=== PATIENT | female | born 1970 | race Two or more races ===

== ENCOUNTER 2021-06-22 11:26 | Inpatient (IN) | payer MEDICAID, OTHER ==
[~2021-06-22] VITALS: Ht 157.5 cm; Wt 101.3 kg
[2021-06-22] MEDS ORDERED: methylPREDNISolone SOD SUCC 125 MG/2 ML VL IV ONE (11:45)
[2021-06-22] MEDS ORDERED: ONDANSETRON HCL 4 MG/2 ML VIAL IV ONE (11:45)
[2021-06-22] MEDS ORDERED: SODIUM CHLORIDE 0.9% 1,000 ML IV ONE ×2 (11:45→17:00)
[2021-06-22 12:51] LABS: Albumin 2.9 g/dL (3.4-5.0); Calcium 8.1 mg/dL (8.5-10.1); Potassium 3.5 mmol/L (3.5-5.1)
[2021-06-22 13:00] LABS: BUN/Creatinine Ratio 10.2; Bilirubin, Total 0.4 mg/dL (0.2-1.0); CRP High Sensitivity 3.14 mg/dL (< 0.3); Total Protein 7.6 g/dL (6.4-8.2)
[2021-06-22 14:06] LABS: Basophils # (auto) 0 10 ^3/uL (0-0.2); Basophils % (auto) 0.7 % (0.0-2.0); Eosinophils # (auto) 0 10 ^3/uL (0-0.8); Hematocrit 38.3 % (36.0-46.0); Hemoglobin 13.2 g/dL (12.2-16.2); Lymphocytes # (auto) 0.4 10 ^3/uL (0.4-5.4); Lymphocytes % (auto) 12.1 % (10.0-50.0); Mean Corpuscular Hemoglobin 31.6 pg (28.0-32.0); Mean Corpuscular Hgb Conc. 34.4 g/dL (32.0-36.0); Mean Corpuscular Volume 91.8 fL (80.0-100.0); Monocytes # (auto) 0.2 10 ^3/uL (0-1.3); Monocytes % (auto) 5.4 % (0.0-12.0); Neutrophils % (auto) 81.8 % (37.0-80.0); Nucleated Red Blood Cells % 0.1 %; Red Blood Cells 4.18 10^6/uL (4.0-5.20); Red Cell Distribution Width 13.1 % (11.8-14.3); White Blood Cell 3.6 10^3/uL (4.4-10.8)
[2021-06-22] MEDS ORDERED: MORPHINE SULFATE INJECTION 2 MG/ML SYRG IV PRN ×2 (17:00)
[2021-06-22] MEDS ORDERED: NITROGLYCERIN 0.4 MG SL TAB SL PRN (17:00)
[2021-06-22] MEDS ORDERED: PROMETHAZINE W/CODEINE 5 ML ORAL SYRUP PO PRN (17:00)
[2021-06-22] MEDS ORDERED: OXYCODONE W/ ACETAMINOPHEN 5/325MG TABLET PO PRN (17:00)
[2021-06-22] MEDS: SODIUM CHLORIDE 0.9% 1,000 ML IV SCH (17:28)
[2021-06-22] MEDS: DOXYCYCLINE 100MG/250ML 250 ML IV SCH (17:28)
[2021-06-22] MEDS ORDERED: TRAZ50TA2 PO (20:22)
[2021-06-22] MEDS ORDERED: DIPH50CA31 PO (20:22)
[2021-06-22] MEDS ORDERED: ALPR0.254 PO (20:22)
[2021-06-22] MEDS ORDERED: METO25TA93 PO (20:22)
[2021-06-22] MEDS ORDERED: NORT25CA PO (20:22)
[2021-06-22] MEDS ORDERED: LISI-716 PO (20:22)
[2021-06-22] MEDS ORDERED: HYDR25TA5 PO (20:22)
[2021-06-22 20:30] VITALS: BP 128/78
[2021-06-22 22:00] VITALS: BP 123/75
[2021-06-22] MEDS ORDERED: diphenhdrAMINE HCL 25 MG CAP PO ONE (23:45)
[2021-06-23] MEDS: FLORASTOR (S. BOULARDII) 250 MG CAP PO SCH ×3 (00:03→21:12)
[2021-06-23] MEDS: ENOXAPARIN SOD 100 MG/1 ML SYRINGE SC SCH ×3 (00:03→21:13)
[2021-06-23] MEDS: SODIUM CHLORIDE 0.9% 1,000 ML IV SCH (00:46)
[2021-06-23 05:00] VITALS: BP 104/72
[2021-06-23] MEDS: DOXYCYCLINE 100MG/250ML 250 ML IV SCH ×2 (06:19→17:24)
[2021-06-23 06:58] LABS: Calcium 7.2 mg/dL (8.5-10.1); Potassium 3.6 mmol/L (3.5-5.1)
[2021-06-23 07:12] LABS: BUN/Creatinine Ratio 13.2; CRP High Sensitivity 2.02 mg/dL (< 0.3)
[2021-06-23 07:13] LABS: Basophils # (auto) 0 10 ^3/uL (0-0.2); Basophils % (auto) 0.2 % (0.0-2.0); Eosinophils # (auto) 0 10 ^3/uL (0-0.8); Hematocrit 37.6 % (36.0-46.0); Hemoglobin 13.2 g/dL (12.2-16.2); Lymphocytes # (auto) 0.7 10 ^3/uL (0.4-5.4); Lymphocytes % (auto) 16.5 % (10.0-50.0); Mean Corpuscular Hemoglobin 32.5 pg (28.0-32.0); Mean Corpuscular Hgb Conc. 35.1 g/dL (32.0-36.0); Mean Corpuscular Volume 92.6 fL (80.0-100.0); Monocytes # (auto) 0.2 10 ^3/uL (0-1.3); Monocytes % (auto) 4.1 % (0.0-12.0); Neutrophils # (auto) 3.3 10 ^3/uL (1.6-8.6); Neutrophils % (auto) 79.2 % (37.0-80.0); Nucleated Red Blood Cells % 0.1 %; Red Blood Cells 4.05 10^6/uL (4.0-5.20); Red Cell Distribution Width 12.8 % (11.8-14.3); White Blood Cell 4.2 10^3/uL (4.4-10.8)
[2021-06-23 09:00] VITALS: BP 119/75
[2021-06-23] MEDS: FAMOTIDINE (10MG/ML) 2ML VL IV SCH (09:26)
[2021-06-23] MEDS ORDERED: DexAMETHasone SOD PHOS 10MG/1ML VIAL INJ IV ONE (12:30)
[2021-06-23 13:00] VITALS: BP 144/97
[2021-06-23] MEDS ORDERED: REMDESIVIR PER PHARMACY 0 ML IV SCH (13:15)
[2021-06-23] MEDS ORDERED: ALBUTEROL SULF HFA 90MCG INH 200DOSE IN SCH (14:00)
[2021-06-23 14:54] LABS: Urine Bacteria NONE SEEN /hpf (None Seen); Urine Blood Negative /uL (Negative); Urine Specific Gravity 1.015 (1.001-1.035); Urine WBC 1 /hpf (0 - 5)
[2021-06-23 15:31] LABS: Amphetamine Screen, Urine NEGATIVE (NEGATIVE); Barbiturate Scree,Urine NEGATIVE (NEGATIVE); Benzodiazephine Screen, Urine POSITIVE (NEGATIVE); Cannabinoid Screen, Urine POSITIVE (NEGATIVE); Cocaine Screen, Urine NEGATIVE (NEGATIVE); Opiate Scree,Urine NEGATIVE (NEGATIVE); Phencyclidine Screen, Urine NEGATIVE (NEGATIVE)
[2021-06-23] MEDS: PROMETHAZINE HCL 25 MG/ML 1ML IV PRN (15:53)
[2021-06-23] MEDS: ACETAMINOPHEN 325 MG TAB PO PRN (15:53)
[2021-06-23] MEDS ORDERED: REMDESIVIR 200 MG in NS 210ml LOADING DOSE ADULT IV ONE (16:00)
[2021-06-23 16:38] VITALS: BP 137/89
[2021-06-23] MEDS: ALPRAZolam 0.25 MG TAB PO SCH (17:26)
[2021-06-23] MEDS: ALBUTEROL SULF HFA 90MCG INH 200DOSE IN SCH (20:51)
[2021-06-23] MEDS: BUDESONIDE (INHALATION) 180 MCG IH IN SCH (20:51)
[2021-06-23 21:10] VITALS: BP 134/78
[2021-06-23] MEDS: traZODone HCL 50 MG TAB PO SCH (21:12)
[2021-06-23] MEDS ORDERED: FAMOTIDINE (10MG/ML) 2ML VL IV SCH (22:00)
[2021-06-23] MEDS: diphenhdrAMINE HCL 25 MG CAP PO ONE ×2 (22:09→22:21)
[2021-06-24] VITALS (7 sets, daily range): BP systolic 99–134; BP diastolic 50–82
[2021-06-24] MEDS: DOXYCYCLINE 100MG/250ML 250 ML IV SCH ×2 (05:00→16:34)
[2021-06-24 07:11] LABS: Albumin 2.5 g/dL (3.4-5.0); Calcium 7.6 mg/dL (8.5-10.1); Potassium 3.6 mmol/L (3.5-5.1)
[2021-06-24 07:20] LABS: BUN/Creatinine Ratio 10.7; Bilirubin, Total 0.3 mg/dL (0.2-1.0); CRP High Sensitivity 1.52 mg/dL (< 0.3)
[2021-06-24] MEDS: ACETAMINOPHEN 325 MG TAB PO PRN (08:21)
[2021-06-24] MEDS: ALBUTEROL SULF HFA 90MCG INH 200DOSE IN SCH (08:36)
[2021-06-24] MEDS: BUDESONIDE (INHALATION) 180 MCG IH IN SCH ×2 (08:38→21:56)
[2021-06-24] MEDS: ZINC SULFATE 220mg CAP or TAB PO SCH (10:00)
[2021-06-24] MEDS: FAMOTIDINE (10MG/ML) 2ML VL IV SCH (10:00)
[2021-06-24] MEDS: DexAMETHasone SOD PHOS 10MG/1ML VIAL INJ IV SCH (10:00)
[2021-06-24] MEDS: traZODone HCL 50 MG TAB PO SCH ×2 (10:00→10:01)
[2021-06-24] MEDS: FLORASTOR (S. BOULARDII) 250 MG CAP PO SCH ×2 (10:01→21:39)
[2021-06-24] MEDS: ASCORBIC ACID 1,000 MG TAB PO SCH (10:02)
[2021-06-24] MEDS: METOPROLOL SUCCINATE XL 50 MG TAB PO SCH (10:02)
[2021-06-24] MEDS: CHOLECALCIFEROL (VITD3) 2,000 UNIT CAP/TAB PO SCH (10:02)
[2021-06-24] MEDS: LISINOPRIL 10 MG TAB PO SCH (10:02)
[2021-06-24] MEDS: ENOXAPARIN SOD 100 MG/1 ML SYRINGE SC SCH ×2 (10:03→21:39)
[2021-06-24] MEDS: NORTRIPTYLINE HCL 25 MG CAP PO SCH (10:43)
[2021-06-24] MEDS ORDERED: REMDESIVIR 100mg 100 MG in SODIUM CHL 0.9% 230 ML IV SCH (15:00)
[2021-06-24] MEDS: PROMETHAZINE HCL 25 MG/ML 1ML IV PRN (16:02)
[2021-06-24] MEDS: ALPRAZolam 0.25 MG TAB PO SCH (18:23)
[2021-06-24] MEDS: ALBUTEROL SULF HFA 90MCG INH 200DOSE IN PRN (21:56)
[2021-06-24] MEDS ORDERED: traZODone HCL 50 MG TAB PO SCH (22:00)
[2021-06-25 05:11] VITALS: BP 141/93
[2021-06-25] MEDS: DOXYCYCLINE 100MG/250ML 250 ML IV SCH (05:25)
[2021-06-25] MEDS: PROMETHAZINE HCL 25 MG/ML 1ML IV PRN (05:25)
[2021-06-25] MEDS: ALBUTEROL SULF HFA 90MCG INH 200DOSE IN PRN (05:55)
[2021-06-25] MEDS: BUDESONIDE (INHALATION) 180 MCG IH IN SCH (05:55)
[2021-06-25 07:18] LABS: Potassium 3.6 mmol/L (3.5-5.1)
[2021-06-25 07:28] LABS: Albumin 2.5 g/dL (3.4-5.0); BUN/Creatinine Ratio 14.1; Bilirubin, Total 0.4 mg/dL (0.2-1.0); Calcium 8.1 mg/dL (8.5-10.1); Total Protein 6.2 g/dL (6.4-8.2)
[2021-06-25 09:00] VITALS: BP 77/93
[2021-06-25] MEDS: DexAMETHasone SOD PHOS 10MG/1ML VIAL INJ IV SCH (10:11)
[2021-06-25] MEDS: ZINC SULFATE 220mg CAP or TAB PO SCH (10:12)
[2021-06-25] MEDS: FLORASTOR (S. BOULARDII) 250 MG CAP PO SCH (10:12)
[2021-06-25] MEDS: FAMOTIDINE (10MG/ML) 2ML VL IV SCH (10:12)
[2021-06-25] MEDS: ASCORBIC ACID 1,000 MG TAB PO SCH (10:13)
[2021-06-25] MEDS: ENOXAPARIN SOD 100 MG/1 ML SYRINGE SC SCH (10:13)
[2021-06-25] MEDS: CHOLECALCIFEROL (VITD3) 2,000 UNIT CAP/TAB PO SCH (10:13)
[2021-06-25] MEDS: METOPROLOL SUCCINATE XL 50 MG TAB PO SCH (10:13)
[2021-06-25] MEDS: LISINOPRIL 10 MG TAB PO SCH (10:13)
[2021-06-25] MEDS: NORTRIPTYLINE HCL 25 MG CAP PO SCH (11:36)
[2021-06-25 12:36] VITALS: BP 135/83
[2021-06-25] MEDS ORDERED: CHOL20007 PO (15:26)
[2021-06-25] MEDS ORDERED: DEX4T PO (15:26)
[2021-06-25] MEDS ORDERED: DOXY-346 PO (15:26)
[2021-06-25] MEDS ORDERED: FAMO20TA10 PO (15:26)
[2021-06-25] MEDS ORDERED: ASPI-717 PO (15:26)
[2021-06-25] MEDS ORDERED: ALBU108A5 IN (15:26)
[2021-06-25] MEDS ORDERED: ONDA-144 PO (15:28)
[2021-06-25 16:05] VITALS: BP 126/77
== END 2021-06-25 16:50 | disposition home health service (06) | DRG 137 ==
LOC: EDBD 11:26 → ER 11:26 → OVERFLOW 16:52 → EAST 18:55
PROVIDERS: ADMIT Hospitalist; ATTEND Hospitalist
PROC: XW033E5 Introduction of Remdesivir Anti-infective into Peripheral Vein, Percutaneous Approach, New Technology Group 5 (ICD-10-PCS; principal; 2021-06-23)
DX: U07.1 COVID-19 (principal); N17.0 Acute kidney failure with tubular necrosis; J12.82 Pneumonia due to coronavirus disease 2019; E86.0 Dehydration; E66.01 Morbid (severe) obesity due to excess calories; F41.9 Anxiety disorder, unspecified; I12.9 Hypertensive chronic kidney disease with stage 1 through stage 4 chronic kidney disease, or unspecified chronic kidney disease; N18.30 Chronic kidney disease, stage 3 unspecified; Z68.41 Body mass index [BMI] 40.0-44.9, adult; Z80.6 Family history of leukemia; Z82.49 Family history of ischemic heart disease and other diseases of the circulatory system; Z83.3 Family history of diabetes mellitus; Z86.718 Personal history of other venous thrombosis and embolism; Z90.710 Acquired absence of both cervix and uterus; Z95.828 Presence of other vascular implants and grafts; Z86.711 Personal history of pulmonary embolism
CPT/HCPCS: 36415; 71045; 74176; 80048; 80053; 80307; 81001; 82728; 84484; 85025; 85379; 86141; 87426; 93005; 93970; 94640; 96361; 96374; 96375; G0378; J1100; J2405; J3490